=== PATIENT | female | born 1980 | race Two or more races ===

== ENCOUNTER 2019-05-07 07:17 | Day surgery (SDC) | payer MEDICAID, OTHER ==
[~2019-05-07] VITALS: Ht 162.6 cm; Wt 79.0 kg
[2019-05-07] MEDS ORDERED: SODIUM CHLORIDE 0.9% 1,000 ML IV ONE (09:46)
[2019-05-07 10:18] LABS: BASOPHILS % 0.4 % (0.0-2.0); EOSINOPHILS % 2.7 % (0.0-5.0); HEMATOCRIT. 38.5 % (36.0-48.0); HEMOGLOBIN. 12.1 g/dL (12.0-16.0); LYMPHOCYTES % 16.2 % (20.0-50.0); MEAN CORPUSCULAR HEMOGLOBIN 21.4 pg (28.0-32.0); MEAN CORPUSCULAR VOLUME 67.9 fL (81.0-99.0); MEAN PLATELET VOLUME 9.1 fl (7.4-10.4); MONOCYTES % 6.6 % (2.0-8.0); NEUTROPHILS % 74.1 % (40.0-76.0); PLATELET 309 x1000/uL (130-400); RED BLOOD CELL COUNT 5.67 mill/uL (4.2-5.4); RED CELL DISTRIBUTION WIDTH 15.2 % (11.6-14.6)
[2019-05-07 10:23] LABS: CHLORIDE 103 mEq/L (98-107)
[2019-05-07 10:45] LABS: B-HCG QUANTITATIVE 3945 mIU/mL (<3)
[2019-05-07 11:00] VITALS: BP 124/70
[2019-05-07 11:00] LABS: PLATELET ESTIMATE NORMAL
[2019-05-07] MEDS ORDERED: PROPOFOL 200MG/20ML VIAL IV ONE ×2 (11:27→11:33)
[2019-05-07] MEDS ORDERED: FENTANYL CITRATE/PF 50MCG/ML 2ML VIAL ONE (11:27)
[2019-05-07] MEDS ORDERED: MIDAZOLAM HCL 2 MG/2 ML VIAL ONE (11:27)
[2019-05-07] MEDS ORDERED: DEXAMETHASONE 4MG/ML 1ML VIAL ONE (11:33)
[2019-05-07] MEDS ORDERED: ONDANSETRON HCL 4MG/2ML INJ ONE (11:33)
[2019-05-07] MEDS ORDERED: OXYTOCIN 10 UNITS/ML 1ML ONE (11:37)
[2019-05-07] MEDS ORDERED: LABETALOL 5MG/ML SYR 20 MG/4 ML SYRINGE IV PRN (12:00)
[2019-05-07] MEDS ORDERED: ONDANSETRON HCL 4MG/2ML INJ IV PRN (12:00)
[2019-05-07] MEDS ORDERED: HYDROMORPHONE HCL/PF 2MG/ML CPJ IV PRN (12:00)
[2019-05-07] MEDS ORDERED: MEPERIDINE HCL/PF 25MG/ML CPJ IV PRN (12:00)
[2019-05-07] MEDS ORDERED: IBUP-2029 MT (12:51)
[2019-05-07] MEDS ORDERED: RHO(D) IMMUNE GLOBULIN 300 MCG/SYR IM ONE (13:00)
== END 2019-05-07 14:19 | disposition home or self-care (01) ==
LOC: ER 07:17 → OR 10:00 → ORIP 10:51 → UNDOADMIN 10:51 → SUPCPDRO 12:33 → OR 14:19
PROVIDERS: ATTEND Obstetrics & Gynecology
DX: O02.1 Missed abortion (principal); R93.89 Abnormal findings on diagnostic imaging of other specified body structures; Z88.0 Allergy status to penicillin; Z88.8 Allergy status to other drugs, medicaments and biological substances
CPT/HCPCS: 36415; 59820; 76801; 76817; 80053; 84702; 85025; 86850; 86870; 86900; 86901; 88305; 99285; J1100; J2250; J2405; J2704; J3010; J7030

== ENCOUNTER 2020-05-12 09:54 | Emergency (ER) | payer MEDICAID ==
[~2020-05-12] VITALS: Ht 162.6 cm; Wt 84.0 kg
[~2020-05-12 09:54] MED LIST: IBUP-2029 MT
[2020-05-12] MEDS ORDERED: RHO(D) IMMUNE GLOBULIN 300 MCG/SYR IM ONE (11:45)
[2020-05-12 12:55] LABS: BASOPHILS % 0.1 % (0.0-2.0); HEMATOCRIT. 29.4 % (36.0-48.0); HEMOGLOBIN. 9.2 g/dL (12.0-16.0); LYMPHOCYTES % 14.1 % (20.0-50.0); MEAN CORPUSCULAR HEMOGLOBIN 20.6 pg (28.0-32.0); MEAN PLATELET VOLUME 8.6 fl (7.4-10.4); MONOCYTES % 8.1 % (2.0-8.0); NEUTROPHILS % 75.7 % (40.0-76.0); PLATELET 278 x1000/uL (130-400); RED BLOOD CELL COUNT 4.46 mill/uL (4.2-5.4); RED CELL DISTRIBUTION WIDTH 15.1 % (11.6-14.6)
[2020-05-12 13:00] LABS: CHLORIDE 107 mEq/L (98-107)
[2020-05-12 13:23] LABS: B-HCG QUANTITATIVE 13608 mIU/mL (<3)
[2020-05-12 14:56] VITALS: BP 109/72
== END 2020-05-12 14:59 | disposition home or self-care (01) ==
LOC: ER 09:54
DX: O36.0930 Maternal care for other rhesus isoimmunization, third trimester, not applicable or unspecified (principal); O99.013 Anemia complicating pregnancy, third trimester; O26.893 Other specified pregnancy related conditions, third trimester; G40.909 Epilepsy, unspecified, not intractable, without status epilepticus; Z3A.31 31 weeks gestation of pregnancy; Z88.0 Allergy status to penicillin
CPT/HCPCS: 36415; 80053; 84702; 85025; 86850; 86900; 90384; 93005; 96372; 99285